=== PATIENT | female | born 1950 | race Caucasian/White ===

== ENCOUNTER → 2018-07-04 | Outpatient (CLI) | payer MEDICARE, OTHER ==
[~2018-07-04] MED LIST: FORTEO750 MCG/3 SUBQ; LISINOPRIL20 MG PO; MACROBID 100 M100 M1 PO; PYRIDIUM200 MG PO
--- NOTE | 2018-07-05 15:06 | PATH ---
[address] [address] PATHOLOGY RPT PROCEDURE Name: AMANDEEP DOW Room: [facility] TamraSara#: [id number] Admission: 07/04/18 Date of : 52 Discharge: Report #: [id number] Path Case #: [id number] Note [facility] Accession Number: [id number] TESTS RESULT FLAG UNITS REF RANGE LAB Clinician Provided Cytology Information No. of containers..01 Other (Miscellaneous) Source: R THYROID DIAGNOSIS: 02 R THYROID INCONCLUSIVE. [place] CATEGORY III. ATYPIA OF UNDETERMINED SIGNIFICANCE. THIS INTERPRETATION INCLUDES EVALUATION OF A CELL BLOCK.SEE COMMENT. COMMENT: A RETAIN RNA SAMPLE IS PENDING, THE RESULTS OF WHICH WILL BE THE SUBJECT OF A SEPARATE REPORT. Pathologist ICD10: 02 R89.6 Signed out by: 02 Justo Simpson MD, Pathologist NPI- [id number] Performed by: Kd Solis, Ethnographer ([facility]) Gross description: 01 20ML, RED, CLEAR /LCS FLAG LEGEND: L-Low Normal,H-High Normal,LL-Alert Low,HH-Alert High <-Panic Low,>-Panic High,A-Abnormal,AA-Critical Abnormal Performed at: [address] [place] [address] Brian Torres MD, [address] [place] [phone] Justo Simpson MD, Specimen Comment: A courtesy copy of this report has been sent to Specimen Comment: [phone]. Specimen Comment: Report sent to Performed at: [address], [place], [place] [id number] MD Brian Torres MD Phone: [phone]
== END | disposition home or self-care (01) ==
LOC: M.ULTRA 07:42
DX: E04.1 Nontoxic single thyroid nodule (principal); R89.6 Abnormal cytological findings in specimens from other organs, systems and tissues; Z88.2 Allergy status to sulfonamides; Z79.899 Other long term (current) drug therapy; Z98.890 Other specified postprocedural states

== ENCOUNTER 2018-08-29 05:51 | Emergency (ER) | payer MEDICARE, OTHER ==
[~2018-08-29] VITALS: Ht 162.6 cm; Wt 61.2 kg
[2018-08-29] MEDS ORDERED: SYNTHROID25 MC1 PO (06:02)
[2018-08-29] MEDS ORDERED: AMOXIL 875 MG875 M1 PO (06:13)
[2018-08-29] MEDS ORDERED: IBUPROFEN 800800 MG PO (06:13)
[2018-08-29 06:19] VITALS: BP 126/73
== END 2018-08-29 06:19 | disposition home or self-care (01) ==
LOC: M.ERS 05:51
DX: J32.9 Chronic sinusitis, unspecified (principal); F32.9 Major depressive disorder, single episode, unspecified; I10 Essential (primary) hypertension; E03.9 Hypothyroidism, unspecified; M81.0 Age-related osteoporosis without current pathological fracture; Z88.2 Allergy status to sulfonamides